=== PATIENT | male | born 1975 | race Caucasian/White ===

== ENCOUNTER 2018-12-06 14:08 | Outpatient (CLI) | payer BC ==
--- NOTE | 2018-12-06 14:24 | RAD ---
EXAM: Two views chest PROVIDED CLINICAL HISTORY: Shortness of breath COMPARISON: None FINDINGS: Cardiac silhouette and pulmonary vasculature are within normal limits. There is biapical pleural and parenchymal scarring. The lungs otherwise appear clear. Degenerative changes are seen in the spine. IMPRESSION: No acute cardiopulmonary process.
== END 2018-12-06 14:09 | disposition home or self-care (01) ==
LOC: RAD 14:08
PROVIDERS: ATTEND Family Medicine
DX: R06.02 Shortness of breath (principal)
CPT/HCPCS: 71046

== ENCOUNTER 2024-05-03 09:56 | Outpatient (CLI) | payer BC | END 2024-05-03 09:57 | disposition home or self-care (01) | LOC: SCSMRI 09:56 | PROVIDERS: ATTEND Family Medicine | DX: M51.16 Intervertebral disc disorders with radiculopathy, lumbar region (principal); M47.26 Other spondylosis with radiculopathy, lumbar region; M48.07 Spinal stenosis, lumbosacral region | CPT/HCPCS: 72148 ==